=== PATIENT | female | born 1935 | race Caucasian/White ===

== ENCOUNTER 2016-10-04 15:35 | Inpatient (IN) | payer OTHER ==
[~2016-10-04] VITALS: Ht 1828.8 cm; Wt 74.4 kg
[2016-10-04 21:55] LABS: HEMATOCRIT 32.9 % (36.0-46.0); MCH 23.8 PG (29.0-34.0); MCHC 31.3 G/DL (30.0-36.0); MEAN PLAT.VOLUME 10.1 uM^3 (9.5-12.4); PLATELET COUNT 281 K/uL (156-360); RBC DIS.WIDTH-CV 19.6 % (11.8-14.6); RBC DIS.WIDTH-SD 51.9 % (39-53); RED BLOOD COUNT 4.33 M/uL (3.80-5.20); WHITE BLOOD COUNT 7.1 K/uL (4.1-10.2)
[2016-10-04 22:02] LABS: EOSINOPHIL (%) 1.3 % (0-5); EOSINOPHIL COUNT 0.1 K/uL (0-0.3); LYMPHOCYTE COUNT 2.1 K/uL (1.0-2.8); MONOCYTE (%) 9.3 % (3-12); MONOCYTE COUNT 0.7 K/uL (0-0.8); NEUTROPHIL (%) 59.3 % (45-76); NEUTROPHIL COUNT 4.2 K/uL (1.8-6.4)
[2016-10-04 22:08] LABS: CHLORIDE 109 mEq/L (99-109); POTASSIUM 2.9 mEq/L (3.7-5.4); SODIUM 143 mEq/L (136-147)
[2016-10-04 22:09] LABS: GLUCOSE 99 mg/dL (70-99)
[2016-10-04 22:11] LABS: ANION GAP 14 MEQ/L (2-14)
[2016-10-04 22:13] LABS: GFR ESTIMATE (CALCULATED) 46 mL/min/
[2016-10-04 22:14] LABS: UREA NITROGEN (BUN) 36 mg/dL (9-23)
[2016-10-05 07:31] LABS: TROP-I INTERPRETATION NEGATIVE; TROPONIN-I 0.02 ng/mL (0.0-0.30)
[2016-10-05 07:45] LABS: ADD MIUA? NO; BILIRUBIN NEGATIVE; BLOOD NEGATIVE; COLOR YELLOW ((YELLOW)); GLUCOSE (STRIP) NEGATIVE; KETONES NEGATIVE; LEUKOCYTES NEGATIVE; NITRITE NEGATIVE; PROTEIN (STRIP) NEGATIVE; UCUL ADDED? NO; UROBILINOGEN 0.2 MG/DL (0.2-1.0)
[2016-10-05] MEDS ORDERED: LO-DOSE ASPIRIN81 M1 PO (12:40)
[2016-10-05] MEDS ORDERED: APRESOLINE10 MG PO (12:41)
[2016-10-05] MEDS ORDERED: METOPROLOL SUCC25 MG PO (12:41)
[2016-10-05] MEDS ORDERED: INDAPAMIDE1.25 MG PO (12:42)
[2016-10-05] MEDS ORDERED: OMEPRAZOLE20 MG PO (12:42)
[2016-10-05] MEDS ORDERED: AMLODIPINE-BEN1 EAC3 PO (12:42)
[2016-10-05] MEDS ORDERED: MOBIC15 MG PO (12:43)
[2016-10-05] MEDS ORDERED: LEXAPRO10 MG PO (12:44)
[2016-10-05] MEDS ORDERED: MYSOLINE250 MG PO (12:45)
[2016-10-05 12:54] LABS: CREATININE 0.9 mg/dL (0.6-1.3); POTASSIUM 2.5 mEq/L (3.7-5.4)
[2016-10-05 15:16] VITALS: BP 137/48
[2016-10-05 15:18] VITALS: BP 137/48
[2016-10-05 17:13] VITALS: BP 184/82
[2016-10-05 17:30] VITALS: BP 184/82
[2016-10-05 23:23] VITALS: BP 161/68
[2016-10-06 07:03] LABS: ANION GAP 7 MEQ/L (2-14); CHLORIDE 110 MEQ/L (99-109); GFR ESTIMATE (CALCULATED) > 59 mL/min/; GLUCOSE 92 mg/dL (70-99); MAGNESIUM 1.9 mg/dl (1.3-2.7); SAMPLE HEMOLYSIS CHECK 0; SAMPLE ICTERIC CHECK 0; SAMPLE LIPEMIA CHECK 0; SODIUM 143 MEQ/L (136-147); UREA NITROGEN (BUN) 26 mg/dL (9-23)
[2016-10-06 07:05] LABS: POTASSIUM 3.8 MEQ/L (3.7-5.4)
[2016-10-06 08:05] VITALS: BP 168/72
[2016-10-06 18:01] VITALS: BP 136/57
[2016-10-06 22:15] VITALS: BP 129/62
[2016-10-06 22:59] VITALS: BP 139/55
[2016-10-07 08:14] VITALS: BP 140/65
[2016-10-07 08:17] LABS: ANION GAP 7 MEQ/L (2-14); CHLORIDE 107 MEQ/L (99-109); GFR ESTIMATE (CALCULATED) > 59 mL/min/; GLUCOSE 86 mg/dL (70-99); POTASSIUM 3.9 MEQ/L (3.7-5.4); SAMPLE HEMOLYSIS CHECK 0; SAMPLE ICTERIC CHECK 0; SAMPLE LIPEMIA CHECK 0; SODIUM 139 MEQ/L (136-147); UREA NITROGEN (BUN) 24 mg/dL (9-23)
[2016-10-07] MEDS ORDERED: AMLODIPINE-BEN1 EACH PO (11:45)
== END 2016-10-07 13:55 | disposition home health service (06) | DRG 641 ==
LOC: EME 15:35 → 5EAST 10-05 13:21 → EDOF 10-05 13:21 → 5EAST 10-05 16:55
PROVIDERS: Emergency Medicine; Family Medicine; Personal Emergency Response Attendant
DX: E87.6 Hypokalemia (principal); M16.0 Bilateral primary osteoarthritis of hip; I10 Essential (primary) hypertension; K21.9 Gastro-esophageal reflux disease without esophagitis; F32.9 Major depressive disorder, single episode, unspecified; Z87.891 Personal history of nicotine dependence; M25.551 Pain in right hip; M25.552 Pain in left hip; F03.90 Unspecified dementia, unspecified severity, without behavioral disturbance, psychotic disturbance, mood disturbance, and anxiety; R29.6 Repeated falls; R32 Unspecified urinary incontinence; R41.0 Disorientation, unspecified; R25.1 Tremor, unspecified; R26.9 Unspecified abnormalities of gait and mobility; F41.9 Anxiety disorder, unspecified
CPT/HCPCS: 70450; 71010; 71020; 72170; 80047; 80048; 81003; 83735; 84484; 85025; 93005; 99281; 99285; J1650; J3480

== ENCOUNTER 2016-10-30 15:11 | Inpatient (IN) | payer OTHER ==
[~2016-10-30] VITALS: Ht 152.4 cm; Wt 74.4 kg
[~2016-10-30 15:11] MED LIST: AMLODIPINE-BEN1 EAC3 PO; AMLODIPINE-BEN1 EACH PO; APRESOLINE10 MG PO; INDAPAMIDE1.25 MG PO; LEXAPRO10 MG PO; LO-DOSE ASPIRIN81 M1 PO; METOPROLOL SUCC25 MG PO; MOBIC15 MG PO; MYSOLINE250 MG PO; OMEPRAZOLE20 MG PO
[2016-10-30 16:41] LABS: HEMATOCRIT 33.7 % (36.0-46.0); MCH 24.2 PG (29.0-34.0); MCHC 31.2 G/DL (30.0-36.0); MCV 77.8 FL (83-99); MEAN PLAT.VOLUME 9.7 uM^3 (9.5-12.4); PLATELET COUNT 356 K/uL (156-360); RBC DIS.WIDTH-CV 19.7 % (11.8-14.6); RBC DIS.WIDTH-SD 53.4 % (39-53); RED BLOOD COUNT 4.33 M/uL (3.80-5.20); WHITE BLOOD COUNT 12.5 K/uL (4.1-10.2)
[2016-10-30 16:58] LABS: CHLORIDE 103 mEq/L (99-109); SODIUM 141 mEq/L (136-147)
[2016-10-30 17:00] LABS: GLUCOSE 99 mg/dL (70-99)
[2016-10-30 17:01] LABS: ANION GAP 17 MEQ/L (2-14)
[2016-10-30 17:03] LABS: GFR ESTIMATE (CALCULATED) 50 mL/min/; POTASSIUM 3.2 mEq/L (3.7-5.4)
[2016-10-30 17:04] LABS: UREA NITROGEN (BUN) 21 mg/dL (9-23)
[2016-10-30] MEDS ORDERED: LIPITOR40 MG PO (20:39)
[2016-10-30 23:24] VITALS: BP 128/57
[2016-10-31] VITALS (7 sets, daily range): BP systolic 138–153; BP diastolic 60–97
[2016-10-31 07:41] LABS: ANION GAP 11 MEQ/L (2-14); CHLORIDE 106 MEQ/L (99-109); GFR ESTIMATE (CALCULATED) > 59 mL/min/; GLUCOSE 108 mg/dL (70-99); POTASSIUM 3.1 MEQ/L (3.7-5.4); SAMPLE HEMOLYSIS CHECK 0; SAMPLE ICTERIC CHECK 0; SAMPLE LIPEMIA CHECK 0; SODIUM 141 MEQ/L (136-147); UREA NITROGEN (BUN) 21 mg/dL (9-23)
[2016-10-31 08:00] LABS: HEMATOCRIT 25.9 % (36.0-46.0); MCH 24.2 PG (29.0-34.0); MCHC 31.7 G/DL (30.0-36.0); MCV 76.4 FL (83-99); MEAN PLAT.VOLUME 9.9 uM^3 (9.5-12.4); PLATELET COUNT 332 K/uL (156-360); RBC DIS.WIDTH-CV 19.5 % (11.8-14.6); RBC DIS.WIDTH-SD 53.6 % (39-53)
[2016-10-31 08:02] LABS: RED BLOOD COUNT 3.39 M/uL (3.80-5.20); WHITE BLOOD COUNT 17.2 K/uL (4.1-10.2)
[2016-10-31 16:12] LABS: BILIRUBIN NEGATIVE; BLOOD NEGATIVE; COLOR YELLOW ((YELLOW)); GLUCOSE (STRIP) NEGATIVE; KETONES NEGATIVE; LEUKOCYTES NEGATIVE; NITRITE NEGATIVE; PH, URINE 5.5 (5-8); PROTEIN (STRIP) TRACE; SPECIFIC GRAVITY 1.025 (1.000-1.030); UROBILINOGEN 0.2 MG/DL (0.2-1.0)
[2016-10-31 16:16] LABS: ADD MIUA? NO
[2016-10-31 16:45] LABS: INFLUENZA A VIRAL ANTIGEN NEGATIVE; INFLUENZA B VIRAL ANTIGEN NEGATIVE
[2016-11-01 03:36] VITALS: BP 135/73
[2016-11-01 07:28] VITALS: BP 147/66
[2016-11-01 08:02] LABS: ANION GAP 8 MEQ/L (2-14); CHLORIDE 104 MEQ/L (99-109); EOSINOPHIL (%) 0.1 % (0-5); GFR ESTIMATE (CALCULATED) > 59 mL/min/; GLUCOSE 152 mg/dL (70-99); HEMATOCRIT 23.9 % (36.0-46.0); IMMATURE GRANULOCYTE (%) 0.2 % (0.0-0.7); LYMPHOCYTE COUNT 1.1 K/uL (1.0-2.8); MCH 24.2 PG (29.0-34.0); MCHC 31.4 G/DL (30.0-36.0); MCV 77.1 FL (83-99); MEAN PLAT.VOLUME 10.1 uM^3 (9.5-12.4); MONOCYTE (%) 5.7 % (3-12); MONOCYTE COUNT 0.5 K/uL (0-0.8); NEUTROPHIL COUNT 6.4 K/uL (1.8-6.4); PLATELET COUNT 273 K/uL (156-360); POTASSIUM 3.3 MEQ/L (3.7-5.4); RBC DIS.WIDTH-CV 19.5 % (11.8-14.6); RBC DIS.WIDTH-SD 54.1 % (39-53); SAMPLE HEMOLYSIS CHECK 0; SAMPLE ICTERIC CHECK 0; SAMPLE LIPEMIA CHECK 0; SODIUM 138 MEQ/L (136-147); UREA NITROGEN (BUN) 20 mg/dL (9-23)
[2016-11-01 08:20] LABS: WHITE BLOOD COUNT 8.1 K/uL (4.1-10.2)
[2016-11-01 16:10] VITALS: BP 148/68
[2016-11-01 16:27] LABS: BASE EXCESS 3.1 mEq/L (-3 to +3); BICARBONATE 27.9 mEq/L (22-26); CARBOXY HGB 1.1 % (0-5); COMMENTS - BLOOD GASES A+C+; DEVICE NC; METHEMOGLOBIN 1.5 % (0-1.5); O2 FLOW 2 L/MIN; PCO2 43 mm Hg (35-45); PO2 99 mm Hg (80-100); SITE LR; pH 7.42 (7.35-7.45)
[2016-11-01 23:29] VITALS: BP 156/65
[2016-11-02 07:29] LABS: EOSINOPHIL (%) 0 % (0-5); HEMATOCRIT 24.2 % (36.0-46.0); IMMATURE GRANULOCYTE (%) 0.2 % (0.0-0.7); LYMPHOCYTE COUNT 0.9 K/uL (1.0-2.8); MCH 23.8 PG (29.0-34.0); MCHC 30.6 G/DL (30.0-36.0); MCV 77.8 FL (83-99); MEAN PLAT.VOLUME 10.1 uM^3 (9.5-12.4); MONOCYTE (%) 7.3 % (3-12); MONOCYTE COUNT 0.4 K/uL (0-0.8); NEUTROPHIL COUNT 4.3 K/uL (1.8-6.4); PLATELET COUNT 267 K/uL (156-360); RBC DIS.WIDTH-CV 19.3 % (11.8-14.6); RBC DIS.WIDTH-SD 54.1 % (39-53); RED BLOOD COUNT 3.11 M/uL (3.80-5.20)
[2016-11-02 07:30] LABS: WHITE BLOOD COUNT 5.6 K/uL (4.1-10.2)
[2016-11-02 07:35] LABS: ANION GAP 9 MEQ/L (2-14); CHLORIDE 106 MEQ/L (99-109); GFR ESTIMATE (CALCULATED) > 59 mL/min/; GLUCOSE 145 mg/dL (70-99); POTASSIUM 3.7 MEQ/L (3.7-5.4); SAMPLE HEMOLYSIS CHECK 0; SAMPLE ICTERIC CHECK 0; SAMPLE LIPEMIA CHECK 0; SODIUM 141 MEQ/L (136-147); UREA NITROGEN (BUN) 18 mg/dL (9-23)
[2016-11-02 07:44] VITALS: BP 157/71
[2016-11-02 16:53] VITALS: BP 163/65
[2016-11-03 00:07] VITALS: BP 159/60
[2016-11-03 07:24] LABS: HEMATOCRIT 26.2 % (36.0-46.0); MCH 24.2 PG (29.0-34.0); MCHC 30.9 G/DL (30.0-36.0); MCV 78.2 FL (83-99); MEAN PLAT.VOLUME 9.8 uM^3 (9.5-12.4); PLATELET COUNT 285 K/uL (156-360); RBC DIS.WIDTH-CV 19.5 % (11.8-14.6); RED BLOOD COUNT 3.35 M/uL (3.80-5.20); WHITE BLOOD COUNT 5.6 K/uL (4.1-10.2)
[2016-11-03 07:36] VITALS: BP 157/69
[2016-11-03 07:38] LABS: EOSINOPHIL (%) 0.7 % (0-5); LYMPHOCYTE COUNT 1.4 K/uL (1.0-2.8); MONOCYTE (%) 13.1 % (3-12); MONOCYTE COUNT 0.7 K/uL (0-0.8); NEUTROPHIL (%) 60.4 % (45-76); NEUTROPHIL COUNT 3.4 K/uL (1.8-6.4)
[2016-11-03 07:54] LABS: ANION GAP 11 MEQ/L (2-14); CHLORIDE 105 MEQ/L (99-109); GFR ESTIMATE (CALCULATED) > 59 mL/min/; POTASSIUM 3.6 MEQ/L (3.7-5.4); SAMPLE HEMOLYSIS CHECK 0; SAMPLE ICTERIC CHECK 0; SAMPLE LIPEMIA CHECK 0; SODIUM 142 MEQ/L (136-147); UREA NITROGEN (BUN) 17 mg/dL (9-23)
[2016-11-03 08:05] LABS: GLUCOSE 95 mg/dL (70-99)
[2016-11-03 15:07] VITALS: BP 161/67
[2016-11-03 16:38] VITALS: BP 167/72
[2016-11-03 19:35] VITALS: BP 172/64
[2016-11-04 00:15] VITALS: BP 129/59
[2016-11-04 03:20] VITALS: BP 166/72
[2016-11-04 07:34] VITALS: BP 131/63
[2016-11-04 13:08] VITALS: BP 146/65
[2016-11-04 16:00] VITALS: BP 178/86
[2016-11-04 16:25] VITALS: BP 173/69
[2016-11-05 00:01] VITALS: BP 166/60
[2016-11-05 07:08] LABS: HEMATOCRIT 28.3 % (36.0-46.0); MCH 24.4 PG (29.0-34.0); MCHC 30.7 G/DL (30.0-36.0); MCV 79.5 FL (83-99); MEAN PLAT.VOLUME 10.3 uM^3 (9.5-12.4); PLATELET COUNT 267 K/uL (156-360); RBC DIS.WIDTH-CV 19.5 % (11.8-14.6); RBC DIS.WIDTH-SD 57.2 % (39-53); RED BLOOD COUNT 3.56 M/uL (3.80-5.20); WHITE BLOOD COUNT 4.9 K/uL (4.1-10.2)
[2016-11-05 07:27] LABS: EOSINOPHIL (%) 1.8 % (0-5); EOSINOPHIL COUNT 0.1 K/uL (0-0.3); LYMPHOCYTE COUNT 2.3 K/uL (1.0-2.8); MONOCYTE (%) 11.2 % (3-12); MONOCYTE COUNT 0.6 K/uL (0-0.8); NEUTROPHIL (%) 39.8 % (45-76); NEUTROPHIL COUNT 1.9 K/uL (1.8-6.4)
[2016-11-05 07:32] VITALS: BP 167/70
[2016-11-05 07:35] LABS: ANION GAP 10 MEQ/L (2-14); CHLORIDE 107 MEQ/L (99-109); POTASSIUM 3.1 MEQ/L (3.7-5.4); SAMPLE HEMOLYSIS CHECK 0; SAMPLE ICTERIC CHECK 0; SAMPLE LIPEMIA CHECK 0; SODIUM 144 MEQ/L (136-147)
[2016-11-05 07:40] LABS: GFR ESTIMATE (CALCULATED) > 59 mL/min/; GLUCOSE 85 mg/dL (70-99); UREA NITROGEN (BUN) 14 mg/dL (9-23)
[2016-11-05 08:48] LABS: HEMATOLOGY COMMENT 1 SMEAR COMPATIBLE; USER ID CCL
[2016-11-05 12:27] VITALS: BP 168/72
[2016-11-05 16:40] VITALS: BP 162/68
[2016-11-05 23:55] VITALS: BP 182/72
[2016-11-06 07:00] VITALS: BP 166/66
[2016-11-06 15:33] VITALS: BP 189/78
[2016-11-06 19:15] VITALS: BP 180/72
[2016-11-07] VITALS: BP 180/68
[2016-11-07 06:54] LABS: ANION GAP 10 MEQ/L (2-14); CHLORIDE 102 MEQ/L (99-109); GFR ESTIMATE (CALCULATED) > 59 mL/min/; GLUCOSE 77 mg/dL (70-99); POTASSIUM 3.5 MEQ/L (3.7-5.4); SAMPLE HEMOLYSIS CHECK 0; SAMPLE ICTERIC CHECK 0; SAMPLE LIPEMIA CHECK 0; SODIUM 142 MEQ/L (136-147); UREA NITROGEN (BUN) 9 mg/dL (9-23)
[2016-11-07 07:01] LABS: EOSINOPHIL (%) 1.2 % (0-5); EOSINOPHIL COUNT 0.1 K/uL (0-0.3); HEMATOCRIT 28.8 % (36.0-46.0); IMMATURE GRANULOCYTE (%) 0.3 % (0.0-0.7); MCHC 30.6 G/DL (30.0-36.0); MCV 78.5 FL (83-99); MEAN PLAT.VOLUME 10.1 uM^3 (9.5-12.4); MONOCYTE (%) 10.2 % (3-12); MONOCYTE COUNT 0.7 K/uL (0-0.8); NEUTROPHIL (%) 57.8 % (45-76); NEUTROPHIL COUNT 3.8 K/uL (1.8-6.4); PLATELET COUNT 324 K/uL (156-360); RBC DIS.WIDTH-CV 19.7 % (11.8-14.6); RBC DIS.WIDTH-SD 56.7 % (39-53); RED BLOOD COUNT 3.67 M/uL (3.80-5.20)
[2016-11-07 07:04] LABS: WHITE BLOOD COUNT 6.6 K/uL (4.1-10.2)
[2016-11-07 08:07] VITALS: BP 156/87
[2016-11-07 15:31] VITALS: BP 150/80
[2016-11-07 23:50] VITALS: BP 184/84
[2016-11-08 08:10] VITALS: BP 144/68
[2016-11-08 11:53] VITALS: BP 147/70
[2016-11-08 15:45] VITALS: BP 152/76
[2016-11-08 23:47] VITALS: BP 163/82
[2016-11-09 07:45] VITALS: BP 188/79
[2016-11-09 15:19] VITALS: BP 173/71
[2016-11-10] VITALS: BP 174/85
[2016-11-10 08:00] VITALS: BP 150/65
[2016-11-10 15:51] VITALS: BP 141/64
[2016-11-10] MEDS ORDERED: ESCITALOPRAM OX10 MG PO (16:41)
[2016-11-10] MEDS ORDERED: K-DUR20 MEQ PO (16:42)
[2016-11-10] MEDS ORDERED: OLANZAPINE2.5 MG PO (16:42)
[2016-11-10] MEDS ORDERED: PREDNISONE10 MG PO (16:43)
[2016-11-10] MEDS ORDERED: LISINOPRIL20 MG PO (16:44)
[2016-11-10] MEDS ORDERED: LORAZEPAM0.5 MG PO (16:48)
== END 2016-11-10 18:11 | disposition hospice, home (50) | DRG 194 ==
LOC: EME 15:11 → EDOF 21:48 → 2EAST 21:48
PROVIDERS: Family Medicine Sports Medicine
DX: J18.0 Bronchopneumonia, unspecified organism (principal); I50.42 Chronic combined systolic (congestive) and diastolic (congestive) heart failure; E87.6 Hypokalemia; M19.90 Unspecified osteoarthritis, unspecified site; R29.6 Repeated falls; E86.0 Dehydration; F03.90 Unspecified dementia, unspecified severity, without behavioral disturbance, psychotic disturbance, mood disturbance, and anxiety; F32.9 Major depressive disorder, single episode, unspecified; Z87.891 Personal history of nicotine dependence; R53.1 Weakness; J20.9 Acute bronchitis, unspecified
CPT/HCPCS: 36600; 70450; 71020; 71250; 73522; 74230; 80048; 81003; 82803; 82948; 85025; 85027; 86850; 86900; 86901; 87086; 87493; 87502; 92610 GN; 92611 GN; 93005; 94640; 94799; 97530 GO; 97530 GP; 99281; 99285; J0456; J1630; J1650; J1940; J2060; J2543; J2920; J3480; J7030; J7050; J7512